=== PATIENT | female | born 1995 | race Caucasian/White ===

== ENCOUNTER 2017-04-23 22:30 | Emergency (ER) | payer SELFPAY, MEDICAID | END 2017-04-24 01:50 | disposition left against medical advice (07) | LOC: E/R 22:30 | DX: Z53.21 Procedure and treatment not carried out due to patient leaving prior to being seen by health care provider (principal) ==

== ENCOUNTER 2017-10-18 07:57 | Outpatient (CLI) | payer MEDICAID ==
[2017-10-18 08:57] LABS: ADD MAN DIFF? NO
[2017-10-18 08:58] LABS: WHITE BLOOD COUNT 6.8 10^3/ul (4.8-10.8)
[2017-10-18 08:58] LABS: BASOPHIL # 0.1 10^3/ul (0.0-0.1); BASOPHILS % 0.9 % (0.0-2.0); EOSINOPHILS # 0.1 10^3/ul (0.0-0.5); EOSINOPHILS % 1.6 % (0.0-7.0); HEMATOCRIT 35.3 % (37.0-47.0); HEMOGLOBIN 11.6 g/dl (12.0-16.0); IMMATURE GRANS #M 0.07 10^3/ul; LYMPHOCYTES # 1.7 10^3/ul (0.8-2.9); LYMPHOCYTES % 25.4 % (18.0-55.0); MEAN CORPUSCULAR HEMOGLOBIN 27.4 pg (29.0-33.0); MEAN CORPUSCULAR HGB CONC 32.9 g/dl (32.0-37.0); MEAN CORPUSCULAR VOLUME 83.5 fl (72.0-104.0); MEAN PLATELET VOLUME 11.3 fl (7.4-10.4); MONOCYTE # 0.5 10^3/ul (0.3-0.9); MONOCYTES % 7.7 % (0.0-13.0); NEUTROPHIL # 4.3 10^3/ul (1.6-7.5); NEUTROPHILS % 63.4 % (30.0-74.0); NUCLEATED RED BLOOD CELLS% 0.3 /100WBC (0.0-0.0); PLATELET COUNT 227 10^3/UL (140-415); RED BLOOD COUNT 4.23 10^6/ul (4.20-5.40); RED CELL DISTRIBUTION WIDTH 13.6 % (11.5-14.5)
[2017-10-18 09:20] LABS: ALANINE AMINOTRANSFERASE 46 IU/L (13-69); ALBUMIN 3.3 g/dl (3.3-4.9); ALBUMIN/GLOBULIN RATIO 0.94; ALKALINE PHOSPHATASE 283 IU/L (42-121); ANION GAP 12 (8-16); ASPARTATE AMINO TRANSFERASE 42 IU/L (15-46); BILIRUBIN,INDIRECT 0.3 mg/dl (0-1.1); BILIRUBIN,TOTAL 0.3 mg/dl (0.2-1.3); BLOOD UREA NITROGEN 11 mg/dl (7-20); CALCIUM 8.4 mg/dl (8.4-10.2); CARBON DIOXIDE 22 mmol/L (21-31); CHLORIDE 109 mmol/L (97-110); CREATININE 0.52 mg/dl (0.44-1.00); GLUCOSE 77 mg/dl (70-220); POTASSIUM 3.8 mmol/L (3.5-5.1); SODIUM 139 mmol/L (135-144); TOTAL PROTEIN 6.8 g/dl (6.1-8.1)
[2017-10-28 16:30] LABS: CHOLIC ACID 24.4 umol/L (< OR = 1.8); DEOXYCHOLIC ACID 4.2 umol/L (< OR = 2.4); TOTAL BILE ACIDS 47.6 umol/L (< OR = 6.8)
== END 2017-10-18 09:45 | disposition home or self-care (01) ==
LOC: OBT 07:57 → L-D 07:58 → OBT 09:45
DX: O26.893 Other specified pregnancy related conditions, third trimester (principal); Z3A.36 36 weeks gestation of pregnancy; L29.9 Pruritus, unspecified
CPT/HCPCS: 76818; 80053; 83789; 85025

== ENCOUNTER 2017-10-21 09:07 | Outpatient (CLI) | payer MEDICAID ==
[2017-10-21 11:43] LABS: RUPTURE FETAL MEMBRANES NEGATIVE (NEGATIVE)
== END 2017-10-21 12:14 | disposition home or self-care (01) ==
LOC: OBT 09:07 → L-D 09:07 → OBT 12:14
DX: O26.613 Liver and biliary tract disorders in pregnancy, third trimester (principal); K83.1 Obstruction of bile duct; Z3A.36 36 weeks gestation of pregnancy
CPT/HCPCS: 76818; 84112

== ENCOUNTER 2017-10-24 07:37 | Outpatient (CLI) | payer MEDICAID ==
[2017-10-24 10:31] LABS: ADD UMIC YES; UR ASCORBIC ACID 40 mg/dL (NEGATIVE); UR BACTERIA FEW /HPF (NONE SEEN); UR BILIRUBIN (Dip) NEGATIVE (NEGATIVE); UR BLOOD (Dip) NEGATIVE (NEGATIVE); UR CLARITY CLOUDY (CLEAR); UR COLOR YELLOW (YELLOW); UR GLUCOSE (Dip) NEGATIVE (NEGATIVE); UR KETONES (Dip) NEGATIVE (NEGATIVE); UR LEUKOCYTE ESTERASE (Dip) 3+ Leu/ul (NEGATIVE); UR NITRITE (Dip) NEGATIVE (NEGATIVE); UR RBC 3 /HPF (0-5); UR SPECIFIC GRAVITY (Dip) 1.019 (1.003-1.030); UR SQUAMOUS EPITHELIAL CELL MODERATE /HPF (FEW); UR TOTAL PROTEIN (Dip) NEGATIVE (NEGATIVE); UR UROBILINOGEN (Dip) 2+ mg/dL (NEGATIVE); UR WBC 81 /HPF (0-5)
[2017-10-24 10:41] LABS: ASPARTATE AMINO TRANSFERASE 41 IU/L (15-46)
[2017-10-24 10:41] LABS: ALANINE AMINOTRANSFERASE 56 IU/L (13-69)
[2017-10-24] MEDS: CEFTRIAXONE 1 GM INJ IM (11:38)
== END 2017-10-24 11:59 | disposition home or self-care (01) ==
LOC: OBT 07:37 → L-D 07:38 → OBT 11:59
DX: O26.893 Other specified pregnancy related conditions, third trimester (principal); Z3A.36 36 weeks gestation of pregnancy; L29.9 Pruritus, unspecified
CPT/HCPCS: 76818; 81001; 84450; 84460

== ENCOUNTER 2017-10-27 19:06 | Inpatient (IN) | payer MEDICAID ==
[2017-10-27] MEDS ORDERED: OXYTOCIN 30 UNITS/LR 500 ML IV (20:00)
[2017-10-27] MEDS ORDERED: CARBOPROST 250 MCG INJ IM (20:00)
[2017-10-27] MEDS ORDERED: IBUPROFEN 600 MG TAB PO (20:00)
[2017-10-27] MEDS ORDERED: ACETAMINOPHEN/CODEINE #3 TAB PO (20:00)
[2017-10-27] MEDS ORDERED: LIDOCAINE 1% (MPF) 30 ML INJ INJ (20:00)
[2017-10-27] MEDS ORDERED: BUTORPHANOL 2 MG INJ IV (20:00)
[2017-10-27] MEDS ORDERED: MISOPROSTOL 200 MCG TAB PR (20:00)
[2017-10-27] MEDS: LACTATED RINGER'S 1,000 ML IV* (20:09)
[2017-10-27 20:23] LABS: ADD MAN DIFF? NO
[2017-10-27 20:25] LABS: BASOPHILS % 0.4 % (0.0-2.0); EOSINOPHILS # 0.1 10^3/ul (0.0-0.5); EOSINOPHILS % 0.7 % (0.0-7.0); HEMOGLOBIN 11.5 g/dl (12.0-16.0); LYMPHOCYTES # 1.7 10^3/ul (0.8-2.9); LYMPHOCYTES % 25.9 % (18.0-55.0); MEAN CORPUSCULAR HEMOGLOBIN 26.8 pg (29.0-33.0); MEAN CORPUSCULAR HGB CONC 31.9 g/dl (32.0-37.0); MEAN CORPUSCULAR VOLUME 83.9 fl (72.0-104.0); MONOCYTE # 0.5 10^3/ul (0.3-0.9); NEUTROPHIL # 4.4 10^3/ul (1.6-7.5); NEUTROPHILS % 65.4 % (30.0-74.0); NUCLEATED RED BLOOD CELLS% 0.3 /100WBC (0.0-0.0); PLATELET COUNT 215 10^3/UL (140-415); RED BLOOD COUNT 4.29 10^6/ul (4.20-5.40); RED CELL DISTRIBUTION WIDTH 14.1 % (11.5-14.5)
[2017-10-27 20:25] LABS: WHITE BLOOD COUNT 6.7 10^3/ul (4.8-10.8)
[2017-10-27 20:59] LABS: INR 0.84; PROTIME 11.6 Sec (11.9-14.9); PT RATIO 0.9
[2017-10-27 21:00] LABS: PARTIAL THROMBOPLASTIN TIME 27.3 Sec (25.0-35.0)
[2017-10-27 21:23] LABS: HEPATITIS B SURFACE ANTIGEN NEGATIVE (NEGATIVE)
[2017-10-27] MEDS: MISOPROSTOL 25 MCG CAPSULE PO (21:31)
[2017-10-27] MEDS: URSODIOL 300 MG CAP PO (21:35)
[2017-10-28] MEDS: LACTATED RINGER'S 1,000 ML IV* ×3 (03:16→19:33)
[2017-10-28] MEDS: URSODIOL 300 MG CAP PO ×3 (09:36→21:03)
[2017-10-28 16:43] LABS: RAPID PLASMA REAGIN NONREACTIVE (NR)
[2017-10-28] MEDS: OXYTOCIN 30 UNITS/LR 500 ML IV (18:11)
[2017-10-28] MEDS: MISOPROSTOL 25 MCG CAPSULE PO ×2 (19:00)
[2017-10-29] MEDS: LACTATED RINGER'S 1,000 ML IV* ×4 (03:43→21:07)
[2017-10-29] MEDS: URSODIOL 300 MG CAP PO ×3 (09:21→21:08)
[2017-10-29] MEDS ORDERED: FENTAnyl 2MCG/ML-ROPIV 0.2% 100 ML (17:44)
[2017-10-29] MEDS ORDERED: NALOXONE (0.4 MG/ML) INJ IV (18:30)
[2017-10-29] MEDS ORDERED: DIPHENHYDRAMINE 50 MG INJ IV (18:30)
[2017-10-29] MEDS: ONDANSETRON 4 MG INJ IV (20:34)
[2017-10-29] MEDS: MISOPROSTOL 25 MCG CAPSULE PO (22:39)
[2017-10-30] MEDS: FENTAnyl 2MCG/ML-ROPIV 0.2% 100 ML BAG EPI ×2 (02:08→09:39)
[2017-10-30] MEDS: MISOPROSTOL 25 MCG CAPSULE PO ×3 (02:18→08:23)
[2017-10-30] MEDS: LACTATED RINGER'S 1,000 ML IV* ×5 (05:00→22:46)
[2017-10-30] MEDS: ONDANSETRON 4 MG INJ IV (06:43)
[2017-10-30] MEDS: URSODIOL 300 MG CAP PO ×2 (09:18→13:42)
[2017-10-30] MEDS: METHYLERGONOVINE 0.2 MG INJ IM (14:26)
[2017-10-30] MEDS: OXYTOCIN 30 UNITS/LR 500 ML IV ×2 (14:30→14:47)
[2017-10-30] MEDS ORDERED: HYDROCODONE/APAP (5/325) TAB PO (15:00)
[2017-10-30] MEDS ORDERED: DIPHENHYDRAMINE 25 MG CAP PO (15:00)
[2017-10-30] MEDS ORDERED: MISOPROSTOL 200 MCG TAB PR (15:00)
[2017-10-30] MEDS ORDERED: CARBOPROST 250 MCG INJ IM (15:00)
[2017-10-30] MEDS ORDERED: SENNA/DOCUSATE NA (8.6MG/50MG) TAB PO (15:00)
[2017-10-30] MEDS ORDERED: ONDANSETRON 4 MG INJ IV (15:00)
[2017-10-30] MEDS ORDERED: DIPHENHYDRAMINE 50 MG INJ IV (15:00)
[2017-10-30] MEDS ORDERED: OXYTOCIN 30 UNITS/LR 500 ML IV (15:00)
[2017-10-30] MEDS ORDERED: ONDANSETRON 4 MG TAB PO (15:00)
[2017-10-30] MEDS ORDERED: NA PHOSPHATE/BIPHOS 133 ML ENEMA PR (15:00)
[2017-10-30] MEDS ORDERED: MAGNESIUM HYDROXIDE 30ML CUP PO (15:00)
[2017-10-30] MEDS ORDERED: DIBUCAINE 1% 30 GM OINT PR (15:00)
[2017-10-30] MEDS: WITCH HAZEL/GLYCERIN PAD PR (17:40)
[2017-10-30] MEDS: IBUPROFEN 600 MG TAB PO (17:40)
[2017-10-30] MEDS: LANOLIN 7 GM TUBE TOP (17:41)
[2017-10-30] MEDS: BENZOCAINE 20% 56 ML SPRAY TOP (17:41)
[2017-10-30] MEDS: HYDROCODONE/APAP (5/325) TAB PO (22:45)
[2017-10-30] MEDS: SENNA/DOCUSATE NA (8.6MG/50MG) TAB PO (22:45)
[2017-10-31] MEDS: URSODIOL 300 MG CAP PO ×4 (00:51→22:19)
[2017-10-31] MEDS: IBUPROFEN 600 MG TAB PO ×5 (00:51→23:23)
[2017-10-31] MEDS: LACTATED RINGER'S 1,000 ML IV* ×2 (06:37→14:47)
[2017-10-31 08:21] LABS: ADD MAN DIFF? NO
[2017-10-31 08:26] LABS: BASOPHILS % 0.2 % (0.0-2.0); EOSINOPHILS # 0.1 10^3/ul (0.0-0.5); EOSINOPHILS % 0.4 % (0.0-7.0); HEMATOCRIT 30.5 % (37.0-47.0); LYMPHOCYTES # 2.2 10^3/ul (0.8-2.9); LYMPHOCYTES % 12.6 % (18.0-55.0); MEAN CORPUSCULAR HEMOGLOBIN 27.6 pg (29.0-33.0); MEAN CORPUSCULAR HGB CONC 32.8 g/dl (32.0-37.0); MEAN CORPUSCULAR VOLUME 84.3 fl (72.0-104.0); MEAN PLATELET VOLUME 12.6 fl (7.4-10.4); MONOCYTES % 5.8 % (0.0-13.0); NEUTROPHIL # 13.8 10^3/ul (1.6-7.5); NEUTROPHILS % 80.5 % (30.0-74.0); PLATELET COUNT 174 10^3/UL (140-415); RED BLOOD COUNT 3.62 10^6/ul (4.20-5.40); RED CELL DISTRIBUTION WIDTH 14.6 % (11.5-14.5)
[2017-10-31 08:26] LABS: WHITE BLOOD COUNT 17.1 10^3/ul (4.8-10.8)
[2017-10-31] MEDS: SENNA/DOCUSATE NA (8.6MG/50MG) TAB PO ×2 (08:34→22:19)
[2017-10-31] MEDS: HYDROCODONE/APAP (5/325) TAB PO (18:41)
[2017-11-01] MEDS: IBUPROFEN 600 MG TAB PO ×2 (06:08→13:07)
[2017-11-01] MEDS: MEASLES,MUMPS,RUBELLA VACCINE INJ SC* (08:39)
[2017-11-01] MEDS: URSODIOL 300 MG CAP PO ×2 (08:44→13:06)
[2017-11-01] MEDS: HYDROCODONE/APAP (5/325) TAB PO (08:45)
[2017-11-01] MEDS: SENNA/DOCUSATE NA (8.6MG/50MG) TAB PO (08:45)
[2017-11-01] MEDS: VARICELLA VACCINE LIVE/PF 1,350 UNIT/0.5 ML ML SC* (09:00)
[2017-11-01] MEDS: DIPHTH/TET/ACEL PERTUSS (ADULT) 0.5 ML VIAL IM* ×2 (09:00→13:08)
== END 2017-11-01 14:00 | disposition home or self-care (01) | DRG 775 ==
LOC: PP1 10-30 16:35 → L-D 19:06
PROVIDERS: Obstetrics & Gynecology
PROC: 10E0XZZ Delivery of Products of Conception, External Approach (ICD-10-PCS; principal; 2017-10-30)
PROC: 3E033VJ Introduction of Other Hormone into Peripheral Vein, Percutaneous Approach (ICD-10-PCS; 2017-10-30)
DX: O26.62 Liver and biliary tract disorders in childbirth (principal); K83.1 Obstruction of bile duct; O69.81X0 Labor and delivery complicated by cord around neck, without compression, not applicable or unspecified; Z3A.37 37 weeks gestation of pregnancy; Z37.0 Single live birth
CPT/HCPCS: 62319; 85025; 85610; 85730; 86592; 86850; 86900; 86901; 87340; 90715